=== PATIENT | male | born 1980 | race African-American/Black ===

== ENCOUNTER 2025-02-01 11:01 | Outpatient (CLI) | payer OTHER, SELFPAY ==
--- OUTSIDE RECORDS SUMMARY | 2019-12-18 02:49 | XMS_ITS | Continuity of Care Document ---
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 . [address], [id number] , tel:+ [phone] Behavioral Health Adult Post-traumatic stress disorderAlcohol Use Disorder, Severe Sep-1 5-202 0 Farrah Sanderson. [address] [place], [place], [id number], [place]. tel:[phone] [place], [id number] , tel:+ [phone] Behavioral Health Adult Post-traumatic stress disorderAlcohol Use Disorder, Severe Jean Carlos-2 3-202 0 Federico Lin. [address] [place], [place], [id number], [place]. tel:[phone] [place], [id number] , tel:+ [phone] Behavioral Health Adult Post-traumatic stress disorderAlcohol Use Disorder, Severe 0 Radha Kady. [address], [place], [id number], [place]. tel:[phone] Family History Family Member Type Diagnosis Age At Onset No Information Payers Payer name Insurance type Covered alliance party ID Authoriza tion(s) No Information Social History Type Description Quantity Date Captured Comments Sex Male Smoking Status No Information Chief Complaint And Reason For Visit No Information History Of Present Illness Encounter Date Complaint History Of Prese nt Illness No Information Instructions Date Instruction Additional Infor mation No Information Assessments Type Assessment Date No Information
--- NOTE | ~2025-02-01 | US_ITS ---
ULTRASOUND ABDOMEN LIMITED (RIGHT UPPER QUADRANT) Clinical History: hepatomegaly Comparison: None Technique: Right upper quadrant sonography Findings: Liver: Normal size. Normal echotexture. No intrahepatic biliary ductal dilatation. Normal hepatopedal flow main portal vein. Common Duct: Normal caliber. 3 mm. Gallbladder: No stones. No wall thickening. No pericholecystic fluid. Pancreas: Obscured by bowel gas. Spleen: Prominent. IMPRESSION: 1. No acute findings. Reviewed, dictated and finalized at location R. AROUND [employer]TERN[employer]ER IMPRESSION: 1. No acute findings.
--- OUTSIDE RECORDS SUMMARY | 2025-02-01 11:44 | XMS_ITS | Encounter Summary ---
[facility] Organization [facility] Address [address] [place] [address] Phone Care Team Providers Care Sales Commissions Analyst Name Role Phone Anyi Guerrero Primary Care Provider [phone]- [phone] Encounter Details Date Type Department Care Team ([facility] st Contact Info) Description 12/17/2024 Scanned Document [facility] [address] [place] [address] Anyi Guerrero PA [address] [place] [address] Social History Tobacco Use Types Packs/Day Years Used Date Smoking Tobacco: Every Day Cigarettes 0.5 26.8 Started: 03/1998 Smokeless Tobacco: Never Alcohol Use Standard Drinks/Week Comments Not Currently 0 (1 standard drink = 0.6 oz pur e alcohol) 30 pk /week Sex and Gender Information Value Date Recorded Sex Assigned at Not on file Legal Sex Male 9:10 AM [employer]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
--- OUTSIDE RECORDS SUMMARY | 2025-02-01 11:44 | XMS_ITS | Clinical Summary ---
Author Organization [facility] Address [address] [place] [address] Phone Care Team Providers Care Commercial Finance Analyst Name Role Phone Anyi Guerrero Primary Care Provider [phone]- [phone] Allergies No known active allergies Medications busPIRone 5 mg tabletIndication s:Generalized anxiety disorder Take 1 tablet (5 mg total) by mouth in the morning and at bedtime 180 tablet 06/19/2024 Active traZODone 50 mg tabletIndication s:Insomnia, unspecified type Take 1 tablet (50 mg total) by mouth daily at bedtime 90 tablet 06/19/2024 Active lurasidone (LATUDA) 20 mg tabletIndication s:Mood disorder (CMS-HCC) Take 1 tablet (20 mg total) by mouth every day with a meal 30 tablet 07/24/2024 Active Active Problems No known active problems Encounters Date Type Department Care Team Description 01/13/2025 10:21 PM CDT - 01/14/2025 3:31 PM CDT Emergency [facility] Emergency Dept [facility] [address] [place] [address] Ming Post, Depression with suicidal ideation (Primary Dx) Discharge Disposition: Discharged/transferr ed to another type of Health Care Institution 12/17/[address] [facility] [address] [place] [address] Anyi Guerrero PA 12/07/2024 3:42 PM CDT - 12/08/2024 11:00 AM CDT [facility] [address] [place] [address] Ming Post, Depression with suicidal ideation (Primary Dx) Discharge Disposition: Discharged to Psych[facility] from Last 3 Months Immunizations Immunization Administration Dates Next Due DTP 10/16/1987, 8,02/16/1985,1982,01/22/1983 Mobmvvk-Frbpy-Orzyfxl - MMR (Priorix) 02/16/1985 Oral Polio (Orimune) 10/16/1987, 88,02/16/1985,1982,01/22/1983 Td - Adult (Adsorbed) 11/01/1996 Social History Tobacco Use Types Packs/Day Years Used Date Smoking Tobacco: Every Day Cigarettes 0.5 26.8 Started: 03/1998 Smokeless Tobacco: Never Tobacco Cessation:Ready to Q uit: No; Counseling Given: Yes Alcohol Use Standard Drinks/Week Comments Not Currently 0 (1 standard drink = 0.6 oz pur e alcohol) 30 pk /week Sex and Gender Information Value Date Recorded Sex Assigned at Not on file 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 Gender Identity Not on file Sexual Orientation Not on file Last Filed Vital Signs Vital Sign Reading Time Taken Comments Blood Pressure 127/76 01/14/2025 7:36 AM CDT Pulse 74 01/14/2025 7:36 AM CDT Temperature 36.4 C (97.6 F) 01/14/2025 7:36 AM CDT Respiratory Rate 18 01/14/2025 7:36 AM CDT Oxygen Saturation 99% 01/14/2025 7:36 AM CDT Inhaled Oxygen Concentration - - Weight 86.2 kg (190 lb) 01/13/2025 10:18 PM CDT Height 175.3 cm (5' 9) 12/07/2024 3:36 PM CDT Body Mass Index 28.06 12/07/2024 3:36 PM CDT Plan of Treatment Health Maintenance Due Date Last Done Comments Varicella Vaccines (1 of 2 - 13+ 2-dose series) 11/08/1995 DTaP/Tdap/Td Vaccines (5 - Tdap) 11/02/1996 11/01/1996, 10/16/1987, 05/26/1987, Additional history exists Hepatitis B Vaccines (1 of 3 - 19+ 3-dose series) 2001 Pneumococcal Vaccines (1 of 2 - PCV) 2001 Lipid Panel 2002 HPV Vaccines (1 - 3-dose SCDM series) 2009 COVID-19 Vaccine (1 - season) 2024 Influenza Vaccine (#1) 2024 Depression Screening 06/14/2025 06/14/2024 Screening for Diabetes 01/14/2028 , 12/07/2024, 10/26/2024, Additional history exists MMR Vaccines Completed 02/16/1985 IPV Vaccines Completed 10/16/1987, 04/29, 02/16/1985, Additional history exists HIB Vaccines Aged Out No longer eligi ble based on patient's age to complete this topic Hepatitis A Vaccines Aged Out No long er eligible based on patient's age to complete this topic Meningococcal B Vaccine Aged Out No l onger eligible based on patient's age to complete this topic Meningococcal Vaccine (ACWY) Aged Out No longer eligible based on patient's age to complete this topic Rotavirus Vaccines Aged Out No longer eligible based on patient's age to complete this topic Procedures Procedure Name Priority Date/Time Associated Diagnosis Comments DRUG SCREEN PANEL, URINE STAT 01/14/2025 4:17 AM CDT UA WITH REFLEX CULTURE IF INDICATED STAT 01/14/2025 4:17 AM CDT ALCOHOL, SERUM Routine 01/14/2025 4:02 AM CDT COVID-19, POC STAT 01/13/2025 10:41 PM CDT TSH STAT 01/13/2025 10:41 PM CDT MAGNESIUM STAT 01/13/2025 10:41 PM CDT COMPREHENSIVE METABOLIC PANEL STAT 01/13/2025 10:41 PM CDT SALICYLATE STAT 01/13/2025 10:41 PM CDT ALCOHOL, SERUM STAT 01/13/2025 10:41 PM CDT ACETAMINOPHEN STAT 01/13/2025 10:41 PM CDT CBC W/DIFF STAT 01/13/2025 10:41 PM CDT ALCOHOL, SERUM Routine 12/07/2024 10:54 PM CDT ALCOHOL, SERUM Routine 12/07/2024 9:15 PM CDT URINE CULTURE, REFLEXED STAT 12/07/2024 8:14 PM CDT DRUG SCREEN PANEL, URINE STAT 12/07/2024 8:14 PM CDT UA WITH REFLEX CULTURE IF INDICATED STAT 12/07/2024 8:14 PM CDT COVID-19, POC STAT 12/07/2024 3:54 PM CDT SALICYLATE STAT 12/07/2024 3:54 PM CDT ACETAMINOPHEN STAT 12/07/2024 3:54 PM CDT ALCOHOL, SERUM STAT 12/07/2024 3:54 PM CDT TSH STAT 12/07/2024 3:54 PM CDT COMPREHENSIVE METABOLIC PANEL STAT 12/07/2024 3:54 PM CDT CBC W/DIFF STAT 12/07/2024 3:54 PM CDT from Last 3 Months Results * (ABNORMAL) DRUG SCREEN PANEL, URINE (01/14/2025 4:17 AM CDT) Only the most recent of2 resultswithin the time period is included. CANNABINOIDS, URINE POSITIVE(A) [facility] Comment:Cutoff value = 50 ng /mL AMPHETAMINE, URINE NEGATIVE [facility] Comment:Cutoff value = 1000 ng/mL BENZODIAZEPINE, URINE NEGATIVE [facility] Comment:Cutoff value 200 = n g/mL BARBITURATE, URINE NEGATIVE [facility] Comment:Cutoff value 200 = n g/mL COCAINE METABOLITE,UR NEGATIVE [facility] Comment:Cutoff value = 300 n g/mL METHADONE, URINE NEGATIVE [facility] Comment:Cutoff value 300 = n g/mL OPIATE, URINE NEGATIVE [facility] Comment:Cutoff Value = 300 n g/mL PHENCYCLIDINE, URINE NEGATIVE [facility] Comment:Cutoff Value = 25 ng /mL DRUGS OF ABUSE (URINE) COMMENT see below [facility] Comment: The drugs of abuse results reported by the [facility] are unconfirmed screening results to be used only for medical (i.e., treatment) purposes. Unconfirmed screening results must not be used for non- medical purposes (e.g, employment testing or legal testing). [facility], [address] [place] [address] VOIDED URINE SPECIMEN / Unknown 01/14/2025 4:17 AM CDT 01/14/2025 4:18 AM CDT us Ming oPst DO HEM/CHEM/ARXNF-FKE-UQMXX Fin al Result Performing Organization Address [facility] Co de Phone Number [facility] [address] [place] [address], * (ABNORMAL) UA WITH REFLEX CULTURE IF INDICATED (01/14/2025 4:17 AM CDT) Only the most recent of2 resultswithin the time period is included. COLOR Yellow COLORLESS-YEL LOW [facility] APPEARANCE Clear [facility] SP. GRAVITY 1.025 1.003 - 1.035 arbitrary unit [facility] PH 5.5 pH [facility] PROTEIN Negative NEGATIVE mg/dL [facility] GLUCOSE Negative NEGATIVE mg/dL [facility] KETONE Trace(A) NEGATIVE mg/dL [facility] BILIRUBIN Negative NEGATIVE [facility] BLOOD Negative NEGATIVE [facility] NITRITE Negative NEGATIVE [facility] UROBILINOGEN 0.2 mg/dL [facility] LEUKOCYTE ESTERASE Negative NEGATIVE [facility] RBC-MANUAL EXAM 0-2 0-2,3-5 /HPF [facility] WBC-MANUAL EXAM 0-3 0-2,3-5 /HPF [facility] SQUAMOUS EPI-MANUAL EXAM FEW NONE-MODERATE /LPF [facility] BACTERIA FEW NONE-FEW [facility] Comment:[facility], [address] [place] [address] Urine VOIDED URINE SPECIMEN / Unknown 01/14/2025 4:17 AM CDT 01/14/2025 4:21 AM CDT Ming Post DO HEM/CHEM/GZFNM-UZG-SCUJZ Fin al Result Performing Organization Address City/[facility]/ZIP Co de Phone Number [facility] [address] [place] [address], [place] * ALCOHOL, SERUM (01/14/2025 4:02 AM CDT) Only the most recent of5 resultswithin the time period is included. ALCOHOL, SERUM 0.036 NONE DETECTED g/dL [facility] Comment:[facility], [address] [place] [address] 01/14/2025 4:02 AM CDT 01/14/2025 4:12 AM CDT Ming Post DO HEM/CHEM/IMMUN-BLOOD Final R esult [facility] [address] [place] [address], [place] * COVID-19, POC (01/13/2025 10:41 PM CDT) Only the most recent of2 resultswithin the time period is included. COVID-19, POC NEGATIVE [facility] Comment: Negative results should be treated as presumptive and, if inconsistent with clinical signs and symptoms or necessary for patient management, should be tested with different authorized or cleared molecular tests. Negative results do not preclude SARS-CoV-2 infection and should not be used as the sole basis for patient management decisions. Negative results should be considered in the context of a patient's recent exposures, history and the presence of clinical signs and symptoms consistent with COVID-19. COVID-19 SOURCE NASOPHARY SWAB [facility] Comment: Previous value was Nasal Swab, verified by V/AUT at 22:41 on 01/13/25. [facility], [address] [place] [address] SWAB OF INTERNAL NOSE / Unknown 01/13/2025 10:41 PM CDT 01/13/2025 10:41 PM CDT us Ming Post DO HEM/CHEM/CONSS-BIB-OCMNF Leopoldo francisco Result - Final [facility] [address] [place] [address], [place] * CBC W/DIFF (01/13/2025 10:41 PM CDT) Only the most recent of2 resultswithin the time period is included. WBC 8.28 4.00 - 11.00 10*3/uL [facility] RBC 5.32 4.10 - 5.70 10*6/uL [facility] HGB 16.3 12.0 - 18.0 g/dL [facility] HCT 47.4 37.0 - 51.0 % [facility] MCV 89.1 80.0 - 100.0 fL [facility] MCH 30.6 27.0 - 33.0 pg [facility] MCHC 34.4 32.0 - 36.0 g/dL [facility] RDW 13.5 12.0 - 15.0 % [facility] RDW-SD 43.8 36.7 - 46.1 fL [facility] PLATELET 235 140 - 400 10*3/uL [facility] MPV 11.3 9.0 - 12.0 fL [facility] # NRBC 0.00 0.00 - 0.00 10*3/uL [facility] % NRBC 0.00 0.0 - 0.0 /100 WBC [facility] SEG 59.7 % [facility] LYMPHOCYTE 28.5 % [facility] MONOCYTE 8.2 % [facility] EOSINOPHIL 2.1 % [facility] BASOPHIL 1.1 % [facility] IMMATURE GRANULOCYTE 0.4 % [facility] ABSOLUTE NEUTR 4.95 1.60 - 7.70 10*3/uL [facility] ABSOLUTE LYMPH 2.36 1.00 - 4.90 10*3/uL [facility] ABSOLUTE MONO 0.68 0.00 - 1.10 10*3/uL [facility] ABSOLUTE EOS 0.17 0.00 - 0.50 10*3/uL [facility] ABSOLUTE BASO 0.09 0.00 - 0.20 10*3/uL [facility] ABSOLUTE IMMATURE GRANULOCYTE 0.03 0.00 - 0.09 10*3/uL [facility] Comment:[facility], [address] [place] [address] 01/13/2025 10:4 1 PM CDT 01/13/2025 10:41 PM CDT us Ming Post DO HEM/CHEM/IMMUN-BLOOD Final R esult Performing Organization Address City/[facility] Co de Phone Number [facility] [address] [place] [address], * (ABNORMAL) COMPREHENSIVE METABOLIC PANEL (01/13/2025 10:41 PM CDT) Only the most recent of2 resultswithin the time period is included. CALCIUM 9.0 8.9 - 10.6 mg/dL [facility] GLUCOSE 107(H) 74 - 100 mg/dL [facility] BUN 10 9 - 21 mg/dL [facility] CREATININE 0.75 0.70 - 1.30 mg/dL [facility] TOTAL PROTEIN 7.6 6.0 - 8.0 g/dL [facility] ALBUMIN 4.1 3.5 - 5.0 g/dL [facility] BILIRUBIN, TOTAL 0.2 0.2 - 1.2 mg/dL [facility] AST 31 9 - 43 U/L [facility] ALT 41 0 - 45 U/L [facility] ALKALINE PHOSPHATASE 113 40 - 150 U/L [facility] SODIUM 142 136 - 145 mmol/L [facility] POTASSIUM 3.3(L) 3.5 - 5.1 mmol/L [facility] CHLORIDE 108(H) 98 - 107 mmol/L [facility] CO2 20.0(L) 22.0 - 29.0 mmol/L [facility] GFR: CKD-EPI 2020 CREAT 115 arbitrary unit [facility] Comment: eGFR of 90 or higher is in the normal range eGFR of 60-89 may mean early-stage kidney disease eGFR of 15-59 may mean kidney disease eGFR below 15 may mean kidney failure NOTE: The GFR estimate is reported in ml/min/1.73 square meters. Effective 08/26/22 the reported GFR estimate is calculated using the CKD-EPI 2020 equation and is intended only for the assessment of chronic kidney disease. [facility], [address] [place] [address] 01/13/2025 10:4 1 PM CDT 01/13/2025 10:41 PM CDT Ming Post DO HEM/CHEM/IMMUN-BLOOD Final R esult Performing Organization Address City/[facility] Co de Phone Number [facility] [address] [place] [address], * TSH (01/13/2025 10:41 PM CDT) Only the most recent of2 resultswithin the time period is included. TSH 4.069 0.350 - 4.940 u[IU]/mL [facility] Comment:[facility], [address] [place] [address] 01/13/2025 10:4 1 PM CDT 01/13/2025 10:41 PM CDT Ming Post DO HEM/CHEM/IMMUN-BLOOD Final R esult Performing Organization Address City/[facility]/ZIP Co de Phone Number [facility] [address] [place] [address], [place] * SALICYLATE (01/13/2025 10:41 PM CDT) Only the most recent of2 resultswithin the time period is included. SALICYLATE <5.0 0.0 - 29.9 mg/dL [facility] [address] [place] [address] 01/13/2025 10:4 1 PM CDT 01/13/2025 10:41 PM CDT Ming Post DO HEM/CHEM/IMMUN-BLOOD Final R esult Performing Organization Address City/[facility]/ZIP Co de Phone Number [facility] [address] [place] [phone], [place] * MAGNESIUM (01/13/2025 10:41 PM CDT) MAGNESIUM 2.2 1.6 - 2.6 mg/dL [facility] Comment:[facility], [address] [place] [address] 01/13/2025 10:4 1 PM CDT 01/13/2025 10:41 PM CDT Ming Post DO HEM/CHEM/IMMUN-BLOOD Final R esult Performing Organization Address City/[facility]/ZIP Co de Phone Number [facility] [address] [place] [address], [place] * ACETAMINOPHEN (01/13/2025 10:41 PM CDT) Only the most recent of2 resultswithin the time period is included. ACETAMINOPHEN <3.0 0.0 - 29.9 ug/mL [facility] [address] [place] [address] 01/13/2025 10:4 1 PM CDT 01/13/2025 10:41 PM CDT Ming Post DO HEM/CHEM/IMMUN-BLOOD Final R esult [facility] [address] [place] [address], * URINE CULTURE, REFLEXED (12/07/2024 8:14 PM CDT) REFLEXED CULTURE, URINE No growth 2 days. [facility] VOIDED URINE SPECIMEN / Unknown 12/07/2024 8:14 PM CDT 12/07/2024 8:45 PM CDT Narrative [facility] - 12/09/2024 9:04 AM CDT [facility] [address] [facility] [id number] Source: Urine-Voided Site: Ming Post DO MICROBIOLOGY Final Result Performing Organization Address City/[facility]/ZIP Co de Phone Number [facility] [address] [place] [address], from Last 3 Months Insurance [facility] Care Teams Commercial Finance Analyst Relationship Specialty Start Date End Date Anyi Guerrero PA [address] [place] [address] PCP - General Adult Medicine 06/09/24
--- OUTSIDE RECORDS SUMMARY | 2025-02-01 11:44 | XMS_ITS | Patient Health Record ---
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 disorders (ICD-10 - Z13.220) 01/24/2025 Screening for thyroid disorder (ICD-10 - Z13.29) 01/22/2025 Marijuana smoker (ICD-10 - F12.90) 01/24/2025 Hepatomegaly (ICD-10 - R16.0) 01/22/2025 Nicotine use disorder (ICD-10 - F17.200) 01/22/2025 Medication management (ICD-10 - Z79.899) May self-administer medications or be administered own oral medications per [facility] protocols. Provided informed consent with understanding of side effects, adverse effects, risks and benefits as well as alternative treatments as previously discussed and with the above recommended medications & other aspects of the treatment program. Agrees to return sooner if symptoms worsen or suicidal or homicidal ideations occur. May also contact the 24-hour crisis hotline, refer to the closest emergency room or call 911 if new symptoms arise of existing symptoms worsen. The Patient/Guardian is aware that this would apply to symptoms like: suicidal ideation, homicidal ideation, high risk behaviors, manic symptoms, psychotic symptoms, physical symptoms, or any other symptoms that may be dangerous to self or others. 01/24/2025 Alcohol use disorder (ICD-10 - F10.99) 01/18/2025 Other Continue treatment as recommended by [facility] staff. Encouraged patient to obtain routine medical care with patient's own primary care provider or establish as a patient at [facility] if no current primary care provider. 01/18/2025 Other Clinician met w [facility] client to assess needs for residential services. Clinician gathered information regarding historical presentation of mental health and substance use symptoms including withdrawal, HIV Risk assessment, psychiatric hospitalization history and presenting concern. Clinician conducted PHQ9 and CSSRS assessments as well as social drivers of health screening for the purposes of identifying additional service needs. Engaged individual in suicide risk assessment. Provided risk based intervention to ensure saftey and linkage to ongoing services 01/21/2025 Other Clinician met w [facility] client to assess needs and preferences for services. Clinician explored therapy goals, history of engagement, psychiatric history and diagnosis. Clinician provided education on same day call in therapy, traditional therapy and motor coach bus driver services. Referrals for preferred methods will be sent following appointment. 01/28/2025 Other Clinician met w [facility] client to assess needs and preferences for services. Clinician explored therapy goals, history of engagement, psychiatric history and diagnosis. Clinician provided education on same day call in therapy, traditional therapy and motor coach bus driver services. Referrals for preferred methods will be sent following appointment. Plan Of Treatment Future Test Test Name Order Date Ultrasound : LTD ABD 2 Organs 01/18/2025 Hemoglobin A1c CLIA Waived 01/24/2025 Occult Blood, Fecal, [place] ([id number]) 025 Hepatitis B Surface Antigen (HBsAg Scree n) 01/24/2025 Hepatitis C Virus Antibody w/Rflx to [facility] ntitative Real-time PCR ([id number]) 01/24/2025 Lipid Panel With LDL/HDL Ratio TSH+Free T4 01/24/2025 Next Appt Details Provider Name:Caroline Centeno, 02/05/2025 02:00:00 PM, [address], [place], [address], Insurance Providers Payer Name Payer Address Payer Phone Subscriber Number Group Number Insured Name Patient Relationship to Insured Coverage Start Date Coverage End Date [employer] Claims Department [address] [place] [address] [phone] [id number] Jose Carlos Russell Self - patient is the insured 5 [facility] [address] [place] [address] [phone] Jose Carlos Russell Self - patient is the insured 5 Medical (General) History Medical History History ICD Code Bipolar boarder line personality depression PTSD Surgical History Surgery Date(Month/Year) None Hospitalization History Reason Date(Month/Year) [facility] 12/2024
== END 2025-02-01 11:02 | disposition home or self-care (01) ==
PROVIDERS: PCP Registered Nurse; Visit Provider Registered Nurse
DX: R16.0 Hepatomegaly, not elsewhere classified (principal)
CPT/HCPCS: 76705